=== PATIENT | male | born 1960 | race Two or more races ===

== ENCOUNTER 2021-06-03 23:09 | Emergency (ER) | payer MEDICAID, OTHER ==
[~2021-06-03] VITALS: Ht 177.8 cm; Wt 72.6 kg
[2021-06-04 01:45] LABS: Basophils # (auto) 0 10 ^3/uL (0-0.2); Basophils % (auto) 0.4 % (0.0-2.0); Eosinophils # (auto) 0 10 ^3/uL (0-0.8); Eosinophils % (auto) 0.5 % (0.0-7.0); Hematocrit 47.9 % (41.0-53.0); Hemoglobin 16.6 g/dL (13.5-17.5); Lymphocytes # (auto) 1.8 10 ^3/uL (0.4-5.4); Lymphocytes % (auto) 38.6 % (10.0-50.0); Mean Corpuscular Hemoglobin 30.1 pg (28.0-32.0); Mean Corpuscular Hgb Conc. 34.6 g/dL (32.0-36.0); Mean Corpuscular Volume 86.8 fL (80.0-100.0); Monocytes # (auto) 0.7 10 ^3/uL (0-1.3); Monocytes % (auto) 13.8 % (0.0-12.0); Neutrophils # (auto) 2.2 10 ^3/uL (1.6-8.6); Neutrophils % (auto) 46.7 % (37.0-80.0); Nucleated Red Blood Cells % 0.2 %; Red Blood Cells 5.52 10^6/uL (4.5-5.90); Red Cell Distribution Width 13.6 % (11.8-14.3); White Blood Cell 4.8 10^3/uL (4.4-10.8)
[2021-06-04 02:03] LABS: Alanine Aminotransferase 21 U/L (16-61); Albumin 3.5 g/dL (3.4-5.0); Anion Gap 6 (5-15); Aspartate Aminotransferase 17 U/L (15-37); BUN/Creatinine Ratio 7.6; Blood Urea Nitrogen 11 mg/dL (7-18); Calcium 8.2 mg/dL (8.5-10.1); Carbon Dioxide 26 mmol/L (21-32); Chloride 103 mmol/L (98-107); GFR African American 64 mL/min; GFR Non-African American 53 mL/min; Glucose 214 mg/dL (74-106); Sodium 135 mmol/L (136-145)
[2021-06-04 02:06] LABS: Alkaline Phosphatase 84 U/L (45-117); Bilirubin, Total 0.5 mg/dL (0.2-1.0); Total Protein 7.7 g/dL (6.4-8.2)
[2021-06-04 05:44] VITALS: BP 161/103
[2021-06-04] MEDS ORDERED: NYS5LQ MT (06:09)
== END 2021-06-04 06:26 | disposition home or self-care (01) ==
LOC: ER 23:13
DX: B37.0 Candidal stomatitis (principal); E11.65 Type 2 diabetes mellitus with hyperglycemia; I10 Essential (primary) hypertension
CPT/HCPCS: 36415; 80053; 82962; 85025

== ENCOUNTER 2025-01-30 22:45 | Inpatient (IN) | payer OTHER ==
[~2025-01-30] VITALS: Ht 177.8 cm; Wt 72.7 kg
[~2025-01-30 22:45] MED LIST: NYS5LQ MT
--- NOTE | 2025-01-30 23:41 | ED.PDOC ---
History of Present Illness HPI Comments 65 y/o M presents with c/c of nonradiating, lower abdominal pain, with associated nausea, vomiting, diarrhea, and poor appetite x4 days. Patient is a poor historian. Significant history for lung cancer, DM, HLD, HTN, [place], kidney disease, and tobacco cigarette and marijuana use. No reported history of previous abdominal surgeries, recent trauma or sick contact, known spoiled food consumption, or further pertinent history/events. He denies any bloody or bilious vomitus, bloody stools, constipation, urinary problems, or further acute symptoms. Chief Complaint: Abdominal Pain Time Seen by MD: 23:18 Reviewed Notes: Nurses Notes, Medications, Allergies Allergies: Coded Allergies: NO KNOWN ALLERGIES (Unverified , 06/04/21) Home Meds Active Scripts Nystatin (Mouth-Throat) (Mycostatin (Mouth-Throat)) 500,000 Units/5 Ml Ss, 5 ML MT QID for 5 Days, #100 ML Prov:KALE GOODSON MD 06/04/21 Information Source: Patient Mode of Arrival: Wheelchair Severity: Moderate Timing: Days Duration: Since onset Prehospital treatment: None Past Medical History PAST MEDICAL HISTORY: Cancer (lung cancer ), DM, High Lipids, HTN, [place] Past Medical History (Other): unspecified kidney disease Surgical History: Denies all surgeries Family History Family History: Reviewed,noncontributory to illness Social History Smoker: Cigarettes Alcohol: Denies ETOH Use Drugs: Marijuana Lives In: Home Constitutional: denies: chills, diaphoresis, fatigue, fever, malaise, sweats, weakness, others EENTM: denies: blurred vision, double vision, ear bleeding, ear discharge, ear drainage, ear pain, ear ringing, eye pain, eye redness, hearing loss, mouth pain, mouth swelling, nasal discharge, nose bleeding, nose congestion, nose pain, photophobia, tearing, throat pain, throat swelling, voice changes, others Respiratory: denies: cough, hemoptysis, orthopnea, SOB at rest, shortness of breath, SOB with excertion, stridor, wheezing, others Cardiovascular: denies: chest pain, dizzy spells, diaphoresis, Dyspnea on exertion, edema, irregular heart beat, left arm pain, lightheadedness, palpita tions, PND, syncope, others Gastrointestinal: reports: abdominal pain, diarrhea, nausea, poor appetite, vomiting; denies: abdomen distended, blood streaked bowels, constipated, dysphagia, difficulty swallowing, hematemesis, melena, poor fluid intake, rectal bleeding, rectal pain, others Genitourinary: denies: burning, dysuria, flank pain, frequency, hematuria, incontinence, penile discharge, penile sore, pain, testicle pain, testicle swelling, urgency, others Neurological: denies: dizziness, fainting, headache, left sided numbness, left sided weakness, numbness, paresthesia, pre-existing deficit, right sided numbness, right sided weakness, seizure, speech problems, tingling, tremors, weakness, others Musculoskeletal: denies: back pain, gout, joint pain, joint swelling, muscle pain, muscle stiffness, neck pain, others Integumetry: denies: bruises, change in color, change in hair/nails, dryness, laceration, lesions, lumps, rash, wounds, others Allergic/Immunocompromised: denies: Difficulty Healing, Frequent Infections, Hives, Itching, others Hematologic/Lymphatic: denies: anemia, blood clots, easy bleeding, easy bruising, swollen glands, others Endocrine: denies: excessive hunger, excessive sweating, excessive thirst, excessive urination, flushing, intolerance to cold, intolerance to heat, unexplained weight gain, unexplained weight loss, others Psychiatric: denies: anxiety, bipolar disorder, depression, hopeless, panic disorder, schizophrenia, sleepless, suicidal, others All Other Systems: Reviewed and Negative Physical Exam General Appearance: Moderate Distress HEENT: Normal ENT Inspection, Pharynx Normal, TMs Normal Neck: Full Range of Motion, Non-Tender, Normal, Normal Inspection Respiratory: Chest Non-Tender, Lungs Clear, No Accessory Muscle Use, No Respiratory Distress, Normal Breath Sounds Cardiovascular: No Edema, No JVD, No Murmur, No Gallop, Normal Peripheral Pulses, Regular Rate/Rhythm Breast Exam: Deferred Gastrointestinal: Diffuse, No Organomegaly, No Pulsatile Mass, Normal Bowel Sounds, Soft, Tenderness Genitalia: Deferred Pelvic: Deferred Rectal: Deferred Extremities: No calf tenderness, Normal capillary refill, Normal inspection, Normal range of motion, Non-tender, No pedal edema Musculoskeletal : Apperance: Normal Neurologic: Alert, edger saw operator II-XII nml as Tested, Motor Weakness, No Motor Deficits, Normal Affect, Normal Mood, No Sensory Deficits Cerebellar Function: Normal Reflexes: Normal Skin: Dry, Pallor, Warm Lymphatic: No Adenopathy Was a procedure done? Was a procedure done?: No Differential Dx Considerations may include: C. Diff, gastritis, gastroenteritis, GERD, constipation, UTI, kidney stones, viral, spoiled food, among others X-Ray, Labs, Meds, VS Vital Signs Date Time Temp Pulse Resp B/P (MAP) Pulse Ox O2 Delivery O2 Flow Rate FiO2 01/31/25 01:36 99 16 135/84 01/31/25 01:13 98.9 100 20 135/84 (101) 96 98.9 01/30/25 22:49 97.8 99 18 139/83 98 97.8 Lab Test 01/30/25 23:25 01/30/25 23:01 Range/Units White Blood Count 5.6 4.4-10.8 10^3/uL Red Blood Count 5.25 4.5-5.90 10^6/uL Hemoglobin 15.5 13.5-17.5 g/dL Hematocrit 45.3 41.0-53.0 % Mean Corpuscular Volume 86.4 80.0-100.0 fL Mean Corpuscular Hemoglobin 29.5 28.0-32.0 pg Mean Corpuscular Hemoglobin Concent 34.2 32.0-36.0 g/dL Red Cell Distribution Width 14.3 11.8-14.3 % Platelet Count 228 140-450 10^3/uL Mean Platelet Volume 9.0 6.9-10.8 fL Neutrophils (%) (Auto) 37.0-80.0 % Lymphocytes (%) (Auto) 10.0-50.0 % Monocytes (%) (Auto) 0.0-12.0 % Basophils (%) (Auto) 0.0-2.0 % Neutrophils # (Auto) 1.6-8.6 10 ^3/uL Lymphocytes # (Auto) 0.4-5.4 10 ^3/uL Monocytes # (Auto) 0-1.3 10 ^3/uL Differential Total Cells Counted 100.0 100 Neutrophils % (Manual) 44 37.0-80.0 Band Neutrophils % (Manual) 9 Lymphocytes % (Manual) 30 10.0-50.0 Monocytes % (Manual) 14 H 0-12 Eosinophils % (Manual) 1 0-7 Basophils % (Manual) 0 0.0-2.0 Metamyelocytes % (manual) 2 Myelocytes % (Manual) 0 Promyelocytes % (Manual) 0 Blast Cells % (Manual) 0 Reactive Lymphocytes 0 Platelet Estimate Adequate Sodium Level 132 L 136-145 mmol/L Potassium Level 3.8 3.5-5.1 mmol/L Chloride Level 99 98-107 mmol/L Carbon Dioxide Level 21 20-31 mmol/L Anion Gap 12 5-15 Blood Urea Nitrogen 64 H 9-23 mg/dL Creatinine 3.09 H 0.700-1.30 mg/dL Glomerular Filtration Rate Calc 22 >90 mL/min BUN/Creatinine Ratio 20.7 H 10.0-20.0 Serum Glucose 197 H 74-106 mg/dL Calcium Level 8.2 L 8.7-10.4 mg/dL Total Bilirubin 0.7 0.2-1.0 mg/dL Aspartate Amino Transferase (AST) 20 13-40 U/L Alanine Aminotransferase (ALT) 23 7-40 U/L Alkaline Phosphatase 67 46-116 U/L Ammonia < 10 L 11-32 umol/L Total Protein 6.2 5.7-8.2 g/dL Albumin 3.6 3.2-4.8 g/dL Lipase 20 12-53 U/L POC Glucose 214 H 70-106 mg/dl Current Medications Medications (Trade) Dose Ordered Sig/Ge Route Start Time Stop Time Status Last Admin Morphine Sulfate 2 mg ONCE ONCE IV 01/31/25 01:15 01/31/25 01:17 DC 01/31/25 01:36 Ondansetron HCl (Zofran) 4 mg ONCE ONCE IV 01/31/25 01:15 01/31/25 01:17 DC 01/31/25 01:36 PROCEDURE(s): ABPL - CT AB PEL WO CON-NO ORAL OR IV IMPRESSION: Moderate infectious/inflammatory pancolitis The patient was started on Flagyl 500 mg IV piggyback. The patient was given morphine 2 mg IV push for the pain The patient was given Zofran 4 mg IV push for the nausea The ammonia level is negative The patient's BUN is 64 and the creatinine is 3.09 The CBC is within normal limits. Images Reviewed?: Images reviewed and evaluated by me Time of 1ST Reevaluation: 23:48 Reevaluation 1ST: Unchanged Patient Education/Counseling: Diagnosis, Treatment, Prognosis Family Education/Counseling: No Family Present SEPSIS Sepsis Screen Date sepsis recognized/suspect: Jan 30, 2025 Time Sepsis recognized/suspect: 2248 Recent Procedure: No On Antibiotic Therapy: No Respiratory Rate >20: No Heart Rate >90: Yes Temp<36 C (96.8 F) or >38.3 C: No SBP <90 or MAP <65 mmHG: No New Acute Mental Status Change: No Is the patient on CPAP, BIPAP,: No Physician Orders Urinalysis (01/30/25 23:17) Ct Ab Pel Wo Con-No Oral Or Iv (01/30/25 23:17) Heplock Iv (01/30/25 23:17) Electric Hoist Operator (01/30/25 23:17) Blood Pressure (01/30/25 23:17) Pulse Oximetry (01/30/25 23:17) Clostridium Difficile Toxin (01/30/25 23:17) Vital Signs Date Time Temp Pulse Resp B/P (MAP) Pulse Ox O2 Delivery O2 Flow Rate FiO2 01/31/25 01:36 99 16 135/84 01/31/25 01:13 98.9 100 20 135/84 (101) 96 98.9 01/30/25 22:49 97.8 99 18 139/83 98 97.8 Laboratory Tests Test 01/30/25 23:25 White Blood Count 5.6 10^3/uL (4.4-10.8) Medications Medications Dose Ordered Sig/Ge Route Start Time Stop Time Status Last Admin Dose Admin Morphine Sulfate 2 mg ONCE ONCE IV 01/31/25 01:15 01/31/25 01:17 DC 01/31/25 01:36 Ondansetron HCl 4 mg ONCE ONCE IV 01/31/25 01:15 01/31/25 01:17 DC 01/31/25 01:36 Departure 1 Departure Time of Disposition: 02:36 Impression: Primary Impression: Intractable abdominal pain Additional Impressions: Acute colitis Dehydration Autonomic dysfunction Disposition: 09 ADMITTED INPATIENT Admit to: Med Surg Condition: Fair Critical Care Note Critical Care Time?: No Stability Stability form required: Yes Unstable for transfer: ED Physician Assesment (Clinical assesment) Heart Score Heart Score: Heart Score Response (Comments) Value History N/A 0 EKG N/A 0 Age N/A 0 Risk Factors N/A 0 Troponin N/A 0 Total 0 I personally scribed for CHRISTINA DIAZ MD ([email or web address]) on 01/30/25 at 23:41. Electronically submitted by Hayes Camejo ([email or web address]). I personally scribed for CHRISTINA DIAZ MD ([email or web address]) on 01/31/25 at 01:33. Electronically submitted by Hayes Camejo [email or web address]). CHRISTINA DIAZ MD Jan 30, 2025 23:41
[2025-01-30 23:59] LABS: Alanine Aminotransferase 23 U/L (7-40); Alkaline Phosphatase 67 U/L (46-116); Anion Gap 12 (5-15); BUN/Creatinine Ratio 20.7 (10.0-20.0); Carbon Dioxide 21 mmol/L (20-31); Chloride 99 mmol/L (98-107); Lipase 20 U/L (12-53); Potassium 3.8 mmol/L (3.5-5.1); Total Protein 6.2 g/dL (5.7-8.2)
[2025-01-31] VITALS (7 sets, daily range): BP systolic 127–135; BP diastolic 70–84; PULSE 84–99; RESP 16–20; TEMP 99.2; O2SAT 92–95
[2025-01-31] LABS: Albumin 3.6 g/dL (3.2-4.8); Bilirubin, Total 0.7 mg/dL (0.2-1.0)
[2025-01-31 00:13] LABS: Blood Urea Nitrogen 64 mg/dL (9-23); Calcium 8.2 mg/dL (8.7-10.4); Glucose 197 mg/dL (74-106); Sodium 132 mmol/L (136-145)
[2025-01-31 00:22] LABS: Hematocrit 45.3 % (41.0-53.0); Hemoglobin 15.5 g/dL (13.5-17.5); Mean Corpuscular Hemoglobin 29.5 pg (28.0-32.0); Mean Corpuscular Volume 86.4 fL (80.0-100.0)
--- NOTE | 2025-01-31 00:37 | DVH ---
Exam: CT CT AB PEL WO CON-NO ORAL OR IV History: Pain Comparison Study: None Technique: Multidetector spiral CT of the abdomen was performed from lung bases to pubic symphysis. Imaging was performed without IV contrast. Axial, coronal and sagittal multiplanar reformats were obtained from the axial data set by the technologist. Radiation Dose : 1. Abdomen/Pelvis: CTDIvol 5.07 mGy, DLP 277.46 mGy*cm. Findings: Evaluation of solid organs is limited due to lack of intravenous contrast use. Lung Bases: No acute or significant lung base finding. Normal heart size. No pleural or pericardial effusion. Liver: The liver is normal in size. No focal lesions. Gallbladder and Biliary Tree: Unremarkable Spleen: Tiny calcified granulomas scattered throughout the spleen. Spleen is otherwise unremarkable. Pancreas: Unremarkable Adrenal Glands: 2 cm low-density left adrenal nodule, likely a benign adenoma. Right adrenal gland is unremarkable. Kidneys: Unremarkable Bladder: Grossly unremarkable for degree of distention. Bowel: Moderate diffuse pancolonic wall thickening and mural edema. No bowel obstruction. The appendix is normal. Peritoneal cavity: No pneumoperitoneum, ascites, or abscess. Lymphadenopathy: No mesenteric, retroperitoneal or periportal lymphadenopathy. Abdominal Wall and Mesentery: Unremarkable. Vasculature: Scattered calcific plaque throughout the abdominal aorta which is otherwise normal in size. Pelvic Organs: Unremarkable Musculoskeletal: No aggressive focal bony lesions, acute fractures or dislocation. IMPRESSION: Moderate infectious/inflammatory pancolitis Radiation optimization: All CT scans at this facility use at least one of these dose optimization techniques: automated exposure control mA and/or kV adjustment per patient size (includes targeted exams where dose is matched to clinical indication) or iterative reconstruction.
[2025-01-31 01:27] LABS: Total Cells Counted 100.0 (100)
[2025-01-31] MEDS: MORPHINE SULFATE INJ 2 MG/ml SYRG IV ONE (01:36)
[2025-01-31] MEDS: ONDANSETRON HCL 4 MG/2 ML VIAL IV ONE (01:36)
[2025-01-31] MEDS ORDERED: ONDANSETRON HCL 4 MG/2 ML VIAL IV PRN (04:00)
[2025-01-31] MEDS ORDERED: ACETAMINOPHEN 325 MG TAB PO PRN (04:00)
[2025-01-31] MEDS ORDERED: ALBUTEROL SULF 2.5 MG/0.5ML(0.5%) NEB SOLN NEB PRN (04:00)
[2025-01-31] MEDS: SODIUM CHLORIDE 0.9% 1,000 ML IV ONE (04:32)
[2025-01-31] MEDS: PANTOPRAZOLE 40 MG TAB PO SCH (06:51)
[2025-01-31] MEDS ORDERED: DEXTROSE (50%) 50ML SYRG IV PRN (07:00)
--- NOTE | 2025-01-31 07:00 | DVHHP2 ---
Admitting Diagnosis: Abdominal pain History of Present Illness 65 year old male with history of lung cancer, DM, HLD, HTN, [place], kidney disease, and tobacco cigarette and marijuana use. is complaining of lower abdominal pain for four days. Patient also reports nausea, vomiting, diarrhea with poor appetite. While in the emergency department the patient was evaluated by the provider. Patient will be admitted for further evaluation and treatment. I discussed admission with the patient/family and is in agreement to treatment plan. Allergies: Coded Allergies: NO KNOWN ALLERGIES (Unverified , 06/04/21) Home Meds Active Scripts Nystatin (Mouth-Throat) (Mycostatin (Mouth-Throat)) 500,000 Units/5 Ml Ss, 5 ML MT QID for 5 Days, #100 ML Prov:KALE GOODSON MD 06/04/21 Reported Medications Atorvastatin Calcium (ATORVASTATIN CALCIUM) 20 Mg Tab, 1 TAB PO DAILY 01/31/25 Lisinopril (Lisinopril) 5 Mg Tab, 1 TAB PO DAILY 01/31/25 Current Medications Current Medications Medications (Trade) Dose Ordered Sig/Ge Route PRN Reason Start Time Stop Time Status Last Admin Ceftriaxone Sodium 50 ml @ 100 mls/hr DAILY@09 IV 01/31/25 09:00 01/31/25 10:00 Metronidazole 100 ml @ 100 mls/hr Q8H IV 01/31/25 11:30 01/31/25 11:38 Pantoprazole Sodium (Protonix Tablet) 40 mg DAILY@0600 PO 01/31/25 06:00 01/31/25 15:58 DC 01/31/25 06:51 Albuterol (Ventolin Medneb) 2.5 mg Q6HPRN PRN NEB SHORTNESS OF BREATH 01/31/25 04:00 Atorvastatin Calcium (Lipitor) 20 mg HS PO 01/31/25 22:00 Acetaminophen/ Hydrocodone Bitart (Urich 5/325MG Tab) 1 tab Q4HP PRN PO MODERATE PAIN (4-6 PAIN SCALE) 01/31/25 04:00 Ondansetron HCl (Zofran) 4 mg Q4HP PRN IV NAUSEA / VOMITING 01/31/25 04:00 Acetaminophen (Tylenol Tablet) 650 mg Q6HP PRN PO PAIN SCALE 1-3 OR TEMP>100.4 01/31/25 04:00 Morphine Sulfate 2 mg Q6HPRN PRN IV SEVERE PAIN (7-10 PAIN SCALE) 01/31/25 04:00 01/31/25 12:25 Diagnostic Test (Pha) (Accu-Chek Comfort Curve T) 1 strip ACHS 01/31/25 07:00 01/31/25 16:45 Insulin Human Regular (InsuLIN R) HS SC 01/31/25 22:00 Insulin Human Regular (InsuLIN R) AC SC 01/31/25 07:00 01/31/25 16:50 Dextrose 50 ml UD PRN IV Blood Sugar LESS THAN 60 01/31/25 07:00 Atorvastatin Calcium (Lipitor) 20 mg DAILY PO 01/31/25 10:00 UNV Heparin Sodium (Porcine) 5,000 units Q12HR SC 01/31/25 10:00 01/31/25 10:23 Tamsulosin HCl (Flomax) 0.4 mg QPM PO 01/31/25 18:00 Sodium Chloride 1,000 ml @ 100 mls/hr Q10H IV 01/31/25 16:00 02/01/25 10:00 01/31/25 17:36 Pantoprazole Sodium (Protonix) 40 mg DAILY IV 02/01/25 10:00 Review of Systems Constitutional: denies chills, denies fever, denies malaise Eyes: denies eye pain, denies vision change ENT: denies ear pain, denies headache, denies nasal congestion, denies painful swallowing, denies voice change Cardiovascular: denies chest pain, denies edema, denies orthopnea, denies palpi tations, denies paroxysmal nocturnal dyspnea Respiratory: denies cough, denies shortness of breath Gastrointestinal: denies constipation, denies diarrhea, denies nausea, denies vomiting Genitourinary: denies dysuria, denies frequent urination, denies urethral discharge Musculoskeletal: denies back pain, denies joint pain, denies muscle pain Skin: denies bruising, denies itching, denies rash Neurological: denies focal weakness, denies headache, denies sensory changes Psychiatric: denies anxiety, denies depression Endocrine: denies polydipsia, denies polyuria Hematologic/Lymphatic: denies easy bleeding, denies easy bruising, denies enlarged lymph nodes Allergic/Immunologic: denies allergy, denies hives Vital Signs Vital Signs Date Time Temp Pulse Resp B/P (MAP) Pulse Ox O2 Delivery O2 Flow Rate FiO2 01/31/25 17:07 100 17 138/72 (94) 95 01/31/25 11:30 98.1 98.1 01/31/25 11:30 Room Air* 0 21 Physical Exam General Appearance: alert, no distress HEENT: EOMI, PERRLA, normal external inspect of ears, no icterus, no nasal drainage Neck: no carotid bruit, no jugular venous distention (JVD), no lymphadenopathy Chest: normal thorax Respiratory: clear to auscultation, normal air movement Cardiovascular: regular rate and rhythm, no diastolic murmur, no jugular venous distention (JVD), no rub, no systolic murmur Abdominal: soft, no hepatomegaly, no mass, no splenomegaly, no tenderness Musculoskeletal: no joint tenderness, no swelling Extremities: normal pulses, no calf tenderness, no clubbing, no cyanosis, no edema Skin: no bruising, no jaundice, no rash Neurological: alert, No focal deficit SEPSIS Sepsis Screen Date sepsis recognized/suspect: Jan 31, 2025 Time Sepsis recognized/suspect: 443 Recent Procedure: No On Antibiotic Therapy: No Respiratory Rate >20: No Heart Rate >90: No Temp<36 C (96.8 F) or >38.3 C: No SBP <90 or MAP <65 mmHG: No New Acute Mental Status Change: No Is the patient on CPAP, BIPAP,: No Physician Orders Ct Ab Pel Wo Con-No Oral Or Iv (01/30/25 23:17) Heplock Iv (01/30/25 23:17) Hydroelectric Machinery Mechanic Helper (01/30/25 23:17) Blood Pressure (01/30/25 23:17) Pulse Oximetry (01/30/25 23:17) Clostridium Difficile Toxin (01/30/25 23:17) Stool Bacterial Culture (01/31/25 03:51) Ceftriaxone 1gm/50ml (Rocephin) (01/31/25 09:00) Metronidazole 500mg/100ml (Flagyl 500mg/ (01/31/25 11:30) Albuterol Medneb (Ventolin Medneb) (01/31/25 04:00) Atorvastatin (Lipitor) (01/31/25 22:00) Basic Metabolic Panel (02/01/25 04:00) Admit (01/31/25 03:51) Hydrocodone-Acet 5/325mg Tab (Urich 5/32 (01/31/25 04:00) Ondansetron Hcl (Zofran) (01/31/25 04:00) Complete Blood Count (02/01/25 04:00) Condition: Stable (01/31/25 03:51) Acetaminophen Tablet (Tylenol Tablet) (01/31/25 04:00) Clear Liq Diet (01/31/25 Breakfast) Bedrest With Bathroom Privileg (01/31/25 03:51) Morphine Sulfate Injection (01/31/25 04:00) Glucose Blood (Accu-Chek Comfort Curve T (01/31/25 07:00) Insulin R (Human) (Insulin R) (01/31/25 22:00) Insulin R (Human) (Insulin R) (01/31/25 07:00) Dextrose 50% Syringe (01/31/25 07:00) * Gi D[facility] Asbestos Wire Finisher (01/31/25 07:06) Kidney (01/31/25 07:07) *Dr. Elise Yoon -Brenton Barbosa (01/31/25 07:07) Sequential Compression Device (01/31/25 07:07) Heparin Sodium (Porcine) (01/31/25 10:00) Insert Lr Catheter QSHIFT (01/31/25 08:41) Tamsulosin Hydrochloride (Flomax) (01/31/25 18:00) * Urology Consult (01/31/25 08:41) Psa Total+% Free (01/31/25 10:00) Ok To Send Pt Home With Lr (01/31/25 10:00) Follow Up In 2 Wk Upon D/C (01/31/25 10:00) Stool Occult Blood (01/31/25 11:58) Sodium Chloride 0.9% (01/31/25 16:00) Urine Protein/Creatinine Ratio (01/31/25 ) Pantoprazole (Protonix) (02/01/25 10:00) Lactic Acid W/ Reflex Order (01/31/25 18:00) Vital Signs Date Time Temp Pulse Resp B/P (MAP) Pulse Ox O2 Delivery O2 Flow Rate FiO2 01/31/25 17:07 100 17 138/72 (94) 95 01/31/25 16:00 106 22 147/81 (103) 92 01/31/25 16:00 105 01/31/25 14:00 102 19 159/76 (103) 92 01/31/25 12:55 90 15 156/83 01/31/25 12:25 85 19 157/83 01/31/25 12:00 91 19 159/84 (109) 96 01/31/25 12:00 91 01/31/25 11:30 98.1 96 18 153/81 (105) 93 98.1 01/31/25 11:30 96 16 93 Room Air* 0 21 01/31/25 10:00 100 24 146/77 (100) 97 01/31/25 08:00 97.6 101 19 144/83 (103) 93 97.6 01/31/25 08:00 83 01/31/25 08:00 Room Air* 0 21 01/31/25 07:02 85 18 145/79 (101) 95 01/31/25 06:44 93 Room Air 01/31/25 06:44 93 Room Air* 0 21 01/31/25 05:00 91 19 156/78 (104) 95 01/31/25 04:37 84 17 95 Room Air* 0 21 01/31/25 04:32 99 20 135/84 95 21 01/31/25 03:00 85 16 138/69 (92) 97 01/31/25 01:36 99 16 135/84 01/31/25 01:13 98.9 100 20 135/84 (101) 96 98.9 01/30/25 22:49 97.8 99 18 139/83 98 97.8 Laboratory Tests Test 01/30/25 23:25 01/31/25 10:04 01/31/25 11:51 01/31/25 17:51 White Blood Count 5.6 10^3/uL (4.4-10.8) 3.8 10^3/uL (4.4-10.8) #L Lactic Acid Level 3.9 mmol/L (0.4-2.0) *H 2.3 mmol/L (0.4-2.0) *H Pending Medications Medications Dose Ordered Sig/Ge Route Start Time Stop Time Status Last Admin Dose Admin Ceftriaxone Sodium 50 ml @ 100 mls/hr DAILY@09 IV 01/31/25 09:00 01/31/25 10:00 Diagnostic Test (Pha) 1 strip ACHS 01/31/25 07:00 01/31/25 16:45 Heparin Sodium (Porcine) 5,000 units Q12HR SC 01/31/25 10:00 01/31/25 10:23 Insulin Human Regular AC SC 01/31/25 07:00 01/31/25 16:50 Metronidazole 100 ml @ 100 mls/hr Q8H IV 01/31/25 11:30 01/31/25 11:38 Sodium Chloride 1,000 ml @ 100 mls/hr Q10H IV 01/31/25 16:00 02/01/25 10:00 01/31/25 17:36 Results Labs Test 01/31/25 17:51 01/31/25 16:32 01/31/25 11:20 01/31/25 10:04 Range/Units Influenza Type A Antigen Negative Negative Influenza Type B Antigen Negative Negative SARS-CoV-2 Antigen (Rapid) Negative NEGATIVE Stool for White Cells Many White Blood Count 3.8 #L 4.4-10.8 10^3/uL Red Blood Count 4.82 4.5-5.90 10^6/uL Hemoglobin 14.2 13.5-17.5 g/dL Hematocrit 41.8 41.0-53.0 % Mean Corpuscular Volume 86.7 80.0-100.0 fL Mean Corpuscular Hemoglobin 29.4 28.0-32.0 pg Mean Corpuscular Hemoglobin Concent 33.9 32.0-36.0 g/dL Red Cell Distribution Width 14.2 11.8-14.3 % Platelet Count 196 140-450 10^3/uL Mean Platelet Volume 8.6 6.9-10.8 fL Neutrophils (%) (Auto) 37.0-80.0 % Lymphocytes (%) (Auto) 10.0-50.0 % Monocytes (%) (Auto) 0.0-12.0 % Basophils (%) (Auto) 0.0-2.0 % Neutrophils # (Auto) 1.6-8.6 10 ^3/uL Lymphocytes # (Auto) 0.4-5.4 10 ^3/uL Monocytes # (Auto) 0-1.3 10 ^3/uL Differential Total Cells Counted 100.0 100 Neutrophils % (Manual) 52 37.0-80.0 Band Neutrophils % (Manual) 10 Lymphocytes % (Manual) 13 10.0-50.0 Monocytes % (Manual) 25 H 0-12 Eosinophils % (Manual) 0 0-7 Basophils % (Manual) 0 0.0-2.0 Metamyelocytes % (manual) 0 Myelocytes % (Manual) 0 Promyelocytes % (Manual) 0 Blast Cells % (Manual) 0 Reactive Lymphocytes 0 Platelet Estimate Adequate Urine Color Yellow Yellow Urine Clarity Turbid H Clear Urine pH 5.0 5.0-9.0 Urine Specific Cullen 1.021 1.001-1.035 Urine Protein 1+ H Negative Urine Ketones Negative Negative Urine Blood 1+ H Negative /uL Urine Nitrite Negative Negative Urine Bilirubin Negative Negative Urine Urobilinogen Normal Negative mg/dL Urine Leukocyte Esterase Negative Negative /uL Urine RBC 3 0 - 3 /hpf Urine Microscopic WBC 3 0-3 /HPF Urine Squamous Epithelial Cells None seen <5 /hpf Urine Bacteria None seen None Seen /hpf Urine Glucose Trace Normal mg/dL Sodium Level 132 L 136-145 mmol/L Potassium Level 3.6 3.5-5.1 mmol/L Chloride Level 101 98-107 mmol/L Carbon Dioxide Level 22 20-31 mmol/L Anion Gap 9 5-15 Blood Urea Nitrogen 58 H 9-23 mg/dL Creatinine 2.75 H 0.700-1.30 mg/dL Glomerular Filtration Rate Calc 25 >90 mL/min BUN/Creatinine Ratio 21.1 H 10.0-20.0 Serum Glucose 213 H 74-106 mg/dL Calcium Level 8.3 L 8.7-10.4 mg/dL Total Bilirubin 0.5 0.2-1.0 mg/dL Aspartate Amino Transferase (AST) 14 13-40 U/L Alanine Aminotransferase (ALT) 20 7-40 U/L Alkaline Phosphatase 57 46-116 U/L C-Reactive Protein High Sensitivity > 20.00 H <1.0 mg/dL Total Protein 6.2 5.7-8.2 g/dL Albumin 3.4 3.2-4.8 g/dL Test 01/31/25 05:56 01/30/25 23:25 Range/Units POC Glucose 229 H 70-106 mg/dl Ammonia < 10 L 11-32 umol/L Lipase 20 12-53 U/L Primary Diagnosis -Abdominal pain r/t patel colitis IV Abx, GI consult, monitoring -Urinary retention Lr catheter placement, IV fluids, monitoring -BPH monitoring -EWA from vasomotor nephropathy Nephrology consult, monitor labs, medications, monitoring -Diarrhea Sent stool for culture, Rule out Cdiff, medications, monitoring Plan discussed with: Patient, Other FRANCISCO JAVIER [employer] MANAGER Jan 31, 2025 07:00
[2025-01-31] MEDS ORDERED: LISI-275 PO (07:07)
[2025-01-31] MEDS ORDERED: ATOR20TA50 PO (07:07)
[2025-01-31] MEDS: ACCU-CHEK COMFORT CURVE STRIP VI SCH (07:26)
[2025-01-31] MEDS: InsuLIN REG 1unit/0.01ml Soln (100units/ml) SC SCH ×2 (07:26→22:00)
--- NOTE | 2025-01-31 08:56 | DVH ---
CLINICAL HISTORY: angel TECHNIQUE: Complete ultrasound exam of the kidneys and bladder was performed. COMPARISON: None FINDINGS: The right kidney has normal echogenicity and measures 10.7 cm. There is no focal parenchymal abnormality or evidence for stone. There is no hydronephrosis. The left kidney has normal echogenicity and measures 9.7 cm. There is no focal parenchymal abnormality or evidence for stone. There is no hydronephrosis. The bladder is distended with a volume of 611 mL. There is trace debris within the bladder. IMPRESSION: No significant sonographic abnormality of the kidneys. Distended urinary bladder with volume of 611 mL. Patient did not want to void. Trace bladder debris. Please correlate with urinalysis.
[2025-01-31] MEDS ORDERED: ATORVASTATIN 20 MG TAB PO SCH (10:00)
--- NOTE | 2025-01-31 10:00 | DVHINCON2 ---
Date of service: Jan 31, 2025 Referring Physician Hospitalist Reason for Consultation Urinary retention History of Present Illness 65 y/o M admitted for "colitis" c/o urinary retention. Lr catheter placed with 700 ml urine return noted. He presents with c/c of nonradiating, lower abdominal pain, with associated nausea, vomiting, diarrhea, and poor appetite x4 days. Patient is a poor historian. Significant history for lung cancer, DM, HLD, HTN, AR, kidney disease, and tobacco cigarette and marijuana use. No reported history of previous abdominal surgeries, recent trauma or sick contact, known spoiled food consumption, or further pertinent history/events. He denies any bloody or bilious vomitus, bloody stools, constipation, urinary problems, or further acute symptoms. Chief Complaint: Abdominal Pain Reviewed Notes: Nurses Notes, Medications, Allergies Allergies: Coded Allergies: NO KNOWN ALLERGIES (Unverified , 06/04/21) Home Meds Active Scripts Nystatin (Mouth-Throat) (Mycostatin (Mouth-Throat)) 500,000 Units/5 Ml Ss, 5 ML MT QID for 5 Days, #100 ML Prov:KALE GOODSON MD 06/04/21 Information Source: Patient Mode of Arrival: Wheelchair Severity: Moderate Timing: Days Duration: Since onset Prehospital treatment: None Past Medical History Cancer (lung cancer ), DM, High Lipids, HTN, AR Past Medical History (Other): unspecified kidney disease Social History Smoker: Cigarettes Alcohol: Denies ETOH Use Drugs: Marijuana Lives In: Home Allergies: Coded Allergies: NO KNOWN ALLERGIES (Unverified , 06/04/21) Home Meds Active Scripts Nystatin (Mouth-Throat) (Mycostatin (Mouth-Throat)) 500,000 Units/5 Ml Ss, 5 ML MT QID for 5 Days, #100 ML Prov:KALE GOODSON MD 06/04/21 Reported Medications Atorvastatin Calcium (ATORVASTATIN CALCIUM) 20 Mg Tab, 1 TAB PO DAILY 01/31/25 Lisinopril (Lisinopril) 5 Mg Tab, 1 TAB PO DAILY 01/31/25 Current Medications Current Medications Medications (Trade) Dose Ordered Sig/Ge Route PRN Reason Start Time Stop Time Status Last Admin Ceftriaxone Sodium 50 ml @ 100 mls/hr DAILY@09 IV 01/31/25 09:00 Metronidazole 100 ml @ 100 mls/hr Q8H IV 01/31/25 11:30 Pantoprazole Sodium (Protonix Tablet) 40 mg DAILY@0600 PO 01/31/25 06:00 01/31/25 06:51 Albuterol (Ventolin Medneb) 2.5 mg Q6HPRN PRN NEB SHORTNESS OF BREATH 01/31/25 04:00 Atorvastatin Calcium (Lipitor) 20 mg HS PO 01/31/25 22:00 Acetaminophen/ Hydrocodone Bitart ([place] 5/325MG Tab) 1 tab Q4HP PRN PO MODERATE PAIN (4-6 PAIN SCALE) 01/31/25 04:00 Ondansetron HCl (Zofran) 4 mg Q4HP PRN IV NAUSEA / VOMITING 01/31/25 04:00 Acetaminophen (Tylenol Tablet) 650 mg Q6HP PRN PO PAIN SCALE 1-3 OR TEMP>100.4 01/31/25 04:00 Morphine Sulfate 2 mg Q6HPRN PRN IV SEVERE PAIN (7-10 PAIN SCALE) 01/31/25 04:00 Diagnostic Test (Pha) (Accu-Chek Comfort Curve T) 1 strip ACHS 01/31/25 07:00 01/31/25 07:26 Insulin Human Regular (InsuLIN R) HS SC 01/31/25 22:00 Insulin Human Regular (InsuLIN R) AC SC 01/31/25 07:00 01/31/25 07:26 Dextrose 50 ml UD PRN IV Blood Sugar LESS THAN 60 01/31/25 07:00 Atorvastatin Calcium (Lipitor) 20 mg DAILY PO 01/31/25 10:00 UNV Heparin Sodium (Porcine) 5,000 units Q12HR SC 01/31/25 10:00 Tamsulosin HCl (Flomax) 0.4 mg QPM PO 01/31/25 18:00 Review of Systems Constitutional: denies: chills, diaphoresis, fatigue, fever, malaise, sweats, weakness, others EENTM: denies: blurred vision, double vision, ear bleeding, ear discharge, ear drainage, ear pain, ear ringing, eye pain, eye redness, hearing loss, mouth pain, mouth swelling, nasal discharge, nose bleeding, nose congestion, nose pain, photophobia, tearing, throat pain, throat swelling, voice changes, others Respiratory: denies: cough, hemoptysis, orthopnea, SOB at rest, shortness of breath, SOB with excertion, stridor, wheezing, others Cardiovascular: denies: chest pain, dizzy spells, diaphoresis, Dyspnea on exertion, edema, irregular heart beat, left arm pain, lightheadedness, palpitations, PND, syncope, others Gastrointestinal: reports: abdominal pain, diarrhea, nausea, poor appetite, vomiting; denies: abdomen distended, blood streaked bowels, constipated, dysphagia, difficulty swallowing, hematemesis, melena, poor fluid intake, rectal bleeding, rectal pain, others Genitourinary: denies: burning, dysuria, flank pain, frequency, hematuria, incontinence, penile discharge, penile sore, pain, testicle pain, testicle swel ling, urgency, others Neurological: denies: dizziness, fainting, headache, left sided numbness, left sided weakness, numbness, paresthesia, pre-existing deficit, right sided numbness, right sided weakness, seizure, speech problems, tingling, tremors, weakness, others Musculoskeletal: denies: back pain, gout, joint pain, joint swelling, muscle pain, muscle stiffness, neck pain, others Integumetry: denies: bruises, change in color, change in hair/nails, dryness, laceration, lesions, lumps, rash, wounds, others Allergic/Immunocompromised: denies: Difficulty Healing, Frequent Infections, Hives, Itching, others Hematologic/Lymphatic: denies: anemia, blood clots, easy bleeding, easy bruising, swollen glands, others Endocrine: denies: excessive hunger, excessive sweating, excessive thirst, excessive urination, flushing, intolerance to cold, intolerance to heat, unexplained weight gain, unexplained weight loss, others Psychiatric: denies: anxiety, bipolar disorder, depression, hopeless, panic disorder, schizophrenia, sleepless, suicidal, others All Other Systems: Reviewed and Negative Vital Signs Vital Signs Date Time Temp Pulse Resp B/P (MAP) Pulse Ox O2 Delivery O2 Flow Rate FiO2 01/31/25 08:00 97.6 101 19 144/83 (103) 93 97.6 01/31/25 08:00 Room Air* 0 21 Physical Exam General Appearance: Moderate Distress HEENT: Normal ENT Inspection, Pharynx Normal, TMs Normal Neck: Full Range of Motion, Non-Tender, Normal, Normal Inspection Respiratory: Chest Non-Tender, Lungs Clear, No Accessory Muscle Use, No Respiratory Distress, Normal Breath Sounds Cardiovascular: No Edema, No JVD, No Murmur, No Gallop, Normal Peripheral Pulses, Regular Rate/Rhythm Breast Exam: Deferred Gastrointestinal: Diffuse, No Organomegaly, No Pulsatile Mass, Normal Bowel Sounds, Soft, Tenderness Genitalia: Lr in place Pelvic: Deferred Rectal: Deferred Extremities: No calf tenderness, Normal capillary refill, Normal inspection, Normal range of motion, Non-tender, No pedal edema Musculoskeletal : Apperance: Normal Neurologic: Alert, tire and lube technician II-XII nml as Tested, Motor Weakness, No Motor Deficits, Normal Affect, Normal Mood, No Sensory Deficits Cerebellar Function: Normal Reflexes: Normal Skin: Dry, Pallor, Warm Lymphatic: No Adenopathy PATIENT: SMOOTH ROTH EBSHAINAEMACCT: [id number] UNIT: [id number] : 1960 LOC: OVERFLOW ROOM / BED: [address] [place] [address] AGE / SEX: 65 / M ADM STATUS: ADM IN SERVICE 6 ORDERING PHYSICIAN: FRANCISCO JAVIER MACKEY NP PROCEDURE(s): KIDUS - KIDNEY REASON: angel ORDER NUMBER(s): [id number], ACCESSION NUMBER(s): [id number] CLINICAL HISTORY: angel TECHNIQUE: Complete ultrasound exam of the kidneys and bladder was performed. COMPARISON: None FINDINGS: The right kidney has normal echogenicity and measures 10.7 cm. There is no focal parenchymal abnormality or evidence for stone. There is no hydronephrosis. The left kidney has normal echogenicity and measures 9.7 cm. There is no focal parenchymal abnormality or evidence for stone. There is no hydronephrosis. The bladder is distended with a volume of 611 mL. There is trace debris within the bladder. IMPRESSION: No significant sonographic abnormality of the kidneys. Distended urinary bladder with volume of 611 mL. Patient did not want to void. Trace bladder debris. Please correlate with urinalysis. ATED BY: SARAH HANEY MD DICTATED DATE/TIME: 01/31/25 0839 SIGNED BY: SARAH HANEY MD SIGNED DATE/TIME: 01/31/25 0853 CC: Labs/Diagnostic Data Labs Test 01/31/25 05:56 01/30/25 23:25 Range/Units POC Glucose 229 H 70-106 mg/dl White Blood Count 5.6 4.4-10.8 10^3/uL Red Blood Count 5.25 4.5-5.90 10^6/uL Hemoglobin 15.5 13.5-17.5 g/dL Hematocrit 45.3 41.0-53.0 % Mean Corpuscular Volume 86.4 80.0-100.0 fL Mean Corpuscular Hemoglobin 29.5 28.0-32.0 pg Mean Corpuscular Hemoglobin Concent 34.2 32.0-36.0 g/dL Red Cell Distribution Width 14.3 11.8-14.3 % Platelet Count 228 140-450 10^3/uL Mean Platelet Volume 9.0 6.9-10.8 fL Neutrophils (%) (Auto) 37.0-80.0 % Lymphocytes (%) (Auto) 10.0-50.0 % Monocytes (%) (Auto) 0.0-12.0 % Basophils (%) (Auto) 0.0-2.0 % Neutrophils # (Auto) 1.6-8.6 10 ^3/uL Lymphocytes # (Auto) 0.4-5.4 10 ^3/uL Monocytes # (Auto) 0-1.3 10 ^3/uL Differential Total Cells Counted 100.0 100 Neutrophils % (Manual) 44 37.0-80.0 Band Neutrophils % (Manual) 9 Lymphocytes % (Manual) 30 10.0-50.0 Monocytes % (Manual) 14 H 0-12 Eosinophils % (Manual) 1 0-7 Basophils % (Manual) 0 0.0-2.0 Metamyelocytes % (manual) 2 Myelocytes % (Manual) 0 Promyelocytes % (Manual) 0 Blast Cells % (Manual) 0 Reactive Lymphocytes 0 Platelet Estimate Adequate Sodium Level 132 L 136-145 mmol/L Potassium Level 3.8 3.5-5.1 mmol/L Chloride Level 99 98-107 mmol/L Carbon Dioxide Level 21 20-31 mmol/L Anion Gap 12 5-15 Blood Urea Nitrogen 64 H 9-23 mg/dL Creatinine 3.09 H 0.700-1.30 mg/dL Glomerular Filtration Rate Calc 22 >90 mL/min BUN/Creatinine Ratio 20.7 H 10.0-20.0 Serum Glucose 197 H 74-106 mg/dL Calcium Level 8.2 L 8.7-10.4 mg/dL Total Bilirubin 0.7 0.2-1.0 mg/dL Aspartate Amino Transferase (AST) 20 13-40 U/L Alanine Aminotransferase (ALT) 23 7-40 U/L Alkaline Phosphatase 67 46-116 U/L Ammonia < 10 L 11-32 umol/L Total Protein 6.2 5.7-8.2 g/dL Albumin 3.6 3.2-4.8 g/dL Lipase 20 12-53 U/L PATIENT: SMOOTH ROTHT: [id number] UNIT: [id number] : 1960 LOC: ER ROOM / BED: / AGE / SEX: 65 / M ADM STATUS: REG ER SERVICE [id number] ORDERING PHYSICIAN: CHRISTINA DIAZ MD PROCEDURE(s): ABPL - CT AB PEL WO CON-NO ORAL OR IV REASON: p[ai ORDER NUMBER(s): [id number], ACCESSION NUMBER(s): [id number] Exam: CT CT AB PEL WO CON-NO ORAL OR IV History: Pain Comparison Study: None Technique: Multidetector spiral CT of the abdomen was performed from lung bases to pubic symphysis. Imaging was performed without IV contrast. Axial, coronal and sagittal multiplanar reformats were obtained from the axial data set by the technologist. Radiation Dose : 1. Abdomen/Pelvis: CTDIvol 5.07 mGy, DLP 277.46 mGy*cm. Findings: Evaluation of solid organs is limited due to lack of intravenous contrast use. Lung Bases: No acute or significant lung base finding. Normal heart size. No pleural or pericardial effusion. Liver: The liver is normal in size. No focal lesions. Gallbladder and Biliary Tree: Unremarkable Spleen: Tiny calcified granulomas scattered throughout the spleen. Spleen is otherwise unremarkable. Pancreas: Unremarkable Adrenal Glands: 2 cm low-density left adrenal nodule, likely a benign adenoma. Right adrenal gland is unremarkable. Kidneys: Unremarkable Bladder: Grossly unremarkable for degree of distention. Bowel: Moderate diffuse pancolonic wall thickening and mural edema. No bowel obstruction. The appendix is normal. Peritoneal cavity: No pneumoperitoneum, ascites, or abscess. Lymphadenopathy: No mesenteric, retroperitoneal or periportal lymphadenopathy. Abdominal Wall and Mesentery: Unremarkable. Vasculature: Scattered calcific plaque throughout the abdominal aorta which is otherwise normal in size. Pelvic Organs: Unremarkable Musculoskeletal: No aggressive focal bony lesions, acute fractures or dislocati on. IMPRESSION: Moderate infectious/inflammatory pancolitis Radiation optimization: All CT scans at this facility use at least one of these dose optimization techniques: automated exposure control mA and/or kV adjustment per patient size (includes targeted exams where dose is matched to clinical indication) or iterative reconstruction. ATED BY: MARQUES CHAIREZ MD DICTATED DATE/TIME: 01/31/2534 SIGNED BY: MARQUES CHAIREZ MD SIGNED DATE/TIME: 01/31/2534 CC: Assessment Urinary retention BPH Colitis Plan/Recommendation Lr to gravity and leg bag for discharge Outpatient cystoscopy tBA PSA Plan discussed with: IKE Zee MD Jan 31, 2025 10:00
[2025-01-31 10:21] LABS: Hematocrit 41.8 % (41.0-53.0); Hemoglobin 14.2 g/dL (13.5-17.5); Mean Corpuscular Hemoglobin 29.4 pg (28.0-32.0); Mean Corpuscular Volume 86.7 fL (80.0-100.0)
[2025-01-31] MEDS: HEPARIN SODIUM (PORCINE) 5000 UNITS/ML 1ML VIAL SC SCH (10:23)
[2025-01-31 10:35] LABS: Alanine Aminotransferase 20 U/L (7-40); Albumin 3.4 g/dL (3.2-4.8); Alkaline Phosphatase 57 U/L (46-116); Anion Gap 9 (5-15); BUN/Creatinine Ratio 21.1 (10.0-20.0); Bilirubin, Total 0.5 mg/dL (0.2-1.0); Carbon Dioxide 22 mmol/L (20-31); Chloride 101 mmol/L (98-107); Potassium 3.6 mmol/L (3.5-5.1); Total Protein 6.2 g/dL (5.7-8.2)
[2025-01-31 10:43] LABS: Blood Urea Nitrogen 58 mg/dL (9-23); Glucose 213 mg/dL (74-106); Sodium 132 mmol/L (136-145)
[2025-01-31 10:44] LABS: Calcium 8.3 mg/dL (8.7-10.4)
[2025-01-31 10:53] LABS: Lactic Acid w/Reflex 3.9 mmol/L (0.4-2.0)
[2025-01-31 11:06] LABS: Urine Protein, UAD 1+ (Negative)
[2025-01-31 11:14] LABS: Total Cells Counted 100.0 (100)
[2025-01-31] MEDS: MORPHINE SULFATE INJ 2 MG/ml SYRG IV PRN (12:25)
--- NOTE | 2025-01-31 15:50 | DVHINCON2 ---
Date of service: Jan 31, 2025 Referring Physician JESSICA Farris Reason for Consultation Acute kidney injury History of Present Illness 65-year-old patient with significant history of BPH, diabetes type 2 for 20 years, hypertension, CAD, kidney disease, chronic small, lung cancer for which he has for goal treatment who presents to complains of nonradiating lower abdominal pain associated with nausea vomiting diarrhea poor appetite for the last four days associated with decreased urinary output. He denies fever chills denies hematuria although presentation he was tachycardic his laboratory data revealed acute kidney injury. Serum creatinine was 3.09 mg/dL lactic acidosis. CT abdomen pelvis revealed pancolitis. Past Medical History Diabetes type 2, hypertension, lung cancer, CAD, chronic smoker Past Surgical History Denied Allergies: Coded Allergies: NO KNOWN ALLERGIES (Unverified , 06/04/21) Home Meds Active Scripts Nystatin (Mouth-Throat) (Mycostatin (Mouth-Throat)) 500,000 Units/5 Ml Ss, 5 ML MT QID for 5 Days, #100 ML Prov:KALE GOODSON MD 06/04/21 Reported Medications Atorvastatin Calcium (ATORVASTATIN CALCIUM) 20 Mg Tab, 1 TAB PO DAILY 01/31/25 Lisinopril (Lisinopril) 5 Mg Tab, 1 TAB PO DAILY 01/31/25 Current Medications Current Medications Medications (Trade) Dose Ordered Sig/Ge Route PRN Reason Start Time Stop Time Status Last Admin Ceftriaxone Sodium 50 ml @ 100 mls/hr DAILY@09 IV 01/31/25 09:00 01/31/25 10:00 Metronidazole 100 ml @ 100 mls/hr Q8H IV 01/31/25 11:30 01/31/25 11:38 Pantoprazole Sodium (Protonix Tablet) 40 mg DAILY@0600 PO 01/31/25 06:00 01/31/25 06:51 Albuterol (Ventolin Medneb) 2.5 mg Q6HPRN PRN NEB SHORTNESS OF BREATH 01/31/25 04:00 Atorvastatin Calcium (Lipitor) 20 mg HS PO 01/31/25 22:00 Acetaminophen/ Hydrocodone Bitart ([place] 5/325MG Tab) 1 tab Q4HP PRN PO MODERATE PAIN (4-6 PAIN SCALE) 01/31/25 04:00 Ondansetron HCl (Zofran) 4 mg Q4HP PRN IV NAUSEA / VOMITING 01/31/25 04:00 Acetaminophen (Tylenol Tablet) 650 mg Q6HP PRN PO PAIN SCALE 1-3 OR TEMP>100.4 01/31/25 04:00 Morphine Sulfate 2 mg Q6HPRN PRN IV SEVERE PAIN (7-10 PAIN SCALE) 01/31/25 04:00 01/31/25 12:25 Diagnostic Test (Pha) (Accu-Chek Comfort Curve T) 1 strip ACHS 01/31/25 07:00 01/31/25 12:00 Insulin Human Regular (InsuLIN R) HS SC 01/31/25 22:00 Insulin Human Regular (InsuLIN R) AC SC 01/31/25 07:00 01/31/25 12:00 Dextrose 50 ml UD PRN IV Blood Sugar LESS THAN 60 01/31/25 07:00 Atorvastatin Calcium (Lipitor) 20 mg DAILY PO 01/31/25 10:00 UNV Heparin Sodium (Porcine) 5,000 units Q12HR SC 01/31/25 10:00 01/31/25 10:23 Tamsulosin HCl (Flomax) 0.4 mg QPM PO 01/31/25 18:00 Family History Unknown Social History He smokes marijuana and cigarettes Review of Systems HEENT: Oral mucosa dry Neck no JVD Cardiovascular: Denies for chest pain denies orthopnea or PND Respiratory: Denies cough or shortness of breath Gastrointestinal: Positive for nausea vomiting diarrhea and abdominal pain Musculoskeletal: Denies myalgias Neurological: Denies focal weakness Dermatological: Denies any rash : Positive for decreased urinary output and straining The rest of the review of systems were reviewed pertinent positives and pertinent negatives are as per HPI up to 12 points review of systems H&P Exam Vital Signs/I&O Vital Sign Date Time Temp Pulse Resp B/P (MAP) Pulse Ox O2 Delivery O2 Flow Rate FiO2 01/31/25 12:55 90 15 156/83 01/31/25 12:00 96 01/31/25 11:30 98.1 98.1 01/31/25 11:30 Room Air* 0 21 Intake and Output 01/30/25 01/31/25 19:00 07:00 Intake Total 100 ml Balance 100 ml Intake IV Total 100 ml Physical Exam HEENT: Dry oral mucosa Pulmonary: Lungs are clear on auscultation bilaterally Cardiovascular S1-S2, no S3 or S4 Abdomen: Bowel sounds positive, soft no rebound tenderness Skin: No rash Neurological: Alert, oriented, no focal weakness Labs/Diagnostic Data Labs/Diagnostic Data Laboratory Tests Test 01/31/25 11:51 01/31/25 11:20 01/31/25 10:04 01/31/25 05:56 Range/Units Lactic Acid Level 2.3 *H 3.9 *H 0.4-2.0 mmol/L Stool for White Cells Many White Blood Count 3.8 #L 4.4-10.8 10^3/uL Red Blood Count 4.82 4.5-5.90 10^6/uL Hemoglobin 14.2 13.5-17.5 g/dL Hematocrit 41.8 41.0-53.0 % Mean Corpuscular Volume 86.7 80.0-100.0 fL Mean Corpuscular Hemoglobin 29.4 28.0-32.0 pg Mean Corpuscular Hemoglobin Concent 33.9 32.0-36.0 g/dL Red Cell Distribution Width 14.2 11.8-14.3 % Platelet Count 196 140-450 10^3/uL Mean Platelet Volume 8.6 6.9-10.8 fL Neutrophils (%) (Auto) 37.0-80.0 % Lymphocytes (%) (Auto) 10.0-50.0 % Monocytes (%) (Auto) 0.0-12.0 % Basophils (%) (Auto) 0.0-2.0 % Neutrophils # (Auto) 1.6-8.6 10 ^3/uL Lymphocytes # (Auto) 0.4-5.4 10 ^3/uL Monocytes # (Auto) 0-1.3 10 ^3/uL Differential Total Cells Counted 100.0 100 Neutrophils % (Manual) 52 37.0-80.0 Band Neutrophils % (Manual) 10 Lymphocytes % (Manual) 13 10.0-50.0 Monocytes % (Manual) 25 H 0-12 Eosinophils % (Manual) 0 0-7 Basophils % (Manual) 0 0.0-2.0 Metamyelocytes % (manual) 0 Myelocytes % (Manual) 0 Promyelocytes % (Manual) 0 Blast Cells % (Manual) 0 Reactive Lymphocytes 0 Platelet Estimate Adequate Urine Color Yellow Yellow Urine Clarity Turbid H Clear Urine pH 5.0 5.0-9.0 Urine Specific [place] 1.021 1.001-1.035 Urine Protein 1+ H Negative Urine Ketones Negative Negative Urine Blood 1+ H Negative /uL Urine Nitrite Negative Negative Urine Bilirubin Negative Negative Urine Urobilinogen Normal Negative mg/dL Urine Leukocyte Esterase Negative Negative /uL Urine RBC 3 0 - 3 /hpf Urine Microscopic WBC 3 0-3 /HPF Urine Squamous Epithelial Cells None seen <5 /hpf Urine Bacteria None seen None Seen /hpf Urine Glucose Trace Normal mg/dL Sodium Level 132 L 136-145 mmol/L Potassium Level 3.6 3.5-5.1 mmol/L Chloride Level 101 98-107 mmol/L Carbon Dioxide Level 22 20-31 mmol/L Anion Gap 9 5-15 Blood Urea Nitrogen 58 H 9-23 mg/dL Creatinine 2.75 H 0.700-1.30 mg/dL Glomerular Filtration Rate Calc 25 >90 mL/min BUN/Creatinine Ratio 21.1 H 10.0-20.0 Serum Glucose 213 H 74-106 mg/dL Calcium Level 8.3 L 8.7-10.4 mg/dL Total Bilirubin 0.5 0.2-1.0 mg/dL Aspartate Amino Transferase (AST) 14 13-40 U/L Alanine Aminotransferase (ALT) 20 7-40 U/L Alkaline Phosphatase 57 46-116 U/L C-Reactive Protein High Sensitivity > 20.00 H <1.0 mg/dL Total Protein 6.2 5.7-8.2 g/dL Albumin 3.4 3.2-4.8 g/dL POC Glucose 229 H 70-106 mg/dl Test 01/30/25 23:25 01/30/25 23:01 Range/Units White Blood Count 5.6 4.4-10.8 10^3/uL Red Blood Count 5.25 4.5-5.90 10^6/uL Hemoglobin 15.5 13.5-17.5 g/dL Hematocrit 45.3 41.0-53.0 % Mean Corpuscular Volume 86.4 80.0-100.0 fL Mean Corpuscular Hemoglobin 29.5 28.0-32.0 pg Mean Corpuscular Hemoglobin Concent 34.2 32.0-36.0 g/dL Red Cell Distribution Width 14.3 11.8-14.3 % Platelet Count 228 140-450 10^3/uL Mean Platelet Volume 9.0 6.9-10.8 fL Neutrophils (%) (Auto) 37.0-80.0 % Lymphocytes (%) (Auto) 10.0-50.0 % Monocytes (%) (Auto) 0.0-12.0 % Basophils (%) (Auto) 0.0-2.0 % Neutrophils # (Auto) 1.6-8.6 10 ^3/uL Lymphocytes # (Auto) 0.4-5.4 10 ^3/uL Monocytes # (Auto) 0-1.3 10 ^3/uL Differential Total Cells Counted 100.0 100 Neutrophils % (Manual) 44 37.0-80.0 Band Neutrophils % (Manual) 9 Lymphocytes % (Manual) 30 10.0-50.0 Monocytes % (Manual) 14 H 0-12 Eosinophils % (Manual) 1 0-7 Basophils % (Manual) 0 0.0-2.0 Metamyelocytes % (manual) 2 Myelocytes % (Manual) 0 Promyelocytes % (Manual) 0 Blast Cells % (Manual) 0 Reactive Lymphocytes 0 Platelet Estimate Adequate Sodium Level 132 L 136-145 mmol/L Potassium Level 3.8 3.5-5.1 mmol/L Chloride Level 99 98-107 mmol/L Carbon Dioxide Level 21 20-31 mmol/L Anion Gap 12 5-15 Blood Urea Nitrogen 64 H 9-23 mg/dL Creatinine 3.09 H 0.700-1.30 mg/dL Glomerular Filtration Rate Calc 22 >90 mL/min BUN/Creatinine Ratio 20.7 H 10.0-20.0 Serum Glucose 197 H 74-106 mg/dL Calcium Level 8.2 L 8.7-10.4 mg/dL Total Bilirubin 0.7 0.2-1.0 mg/dL Aspartate Amino Transferase (AST) 20 13-40 U/L Alanine Aminotransferase (ALT) 23 7-40 U/L Alkaline Phosphatase 67 46-116 U/L Ammonia < 10 L 11-32 umol/L Total Protein 6.2 5.7-8.2 g/dL Albumin 3.6 3.2-4.8 g/dL Lipase 20 12-53 U/L POC Glucose 214 H 70-106 mg/dl CT abdomen pelvis pancolitis Assessment Assessment: 1. Acute kidney injury secondary to hypovolemia and urinary retention. 2. Urinary retention 3. Acute gastroenteritis 4. Hypovolemia 5. Lung cancer 6. Diabetes type 2 7. Hypertension 8. Chronic smoker 9. BPH Plan: IV fluids with NS drip Lr catheter placement, close monitoring of urinary output Tamsulosin, Urology consult Avoid nephrotoxic agents, NSAIDs Obtain urine protein creatinine ratio Tighter glycemic control Thank you very much for allowing us to participate in the care of this patient please contact if you have any questions. Plan discussed with: Patient PHUONG FUNEZ MD Jan 31, 2025 15:50
--- NOTE | 2025-01-31 15:58 | DVHCONRES ---
Date Seen: Jan 31, 2025 Resident Creating Document: FLACO REBOLLAR RESIDENT History of Present Illness 65-year-old male presents to the ER with a chief complaint of intractable nausea, and diarrhea for the past 4 days. Patient denies recent traveling, sick contacts, meeting outside, reports that he has been having more than 6 episodes of diarrhea, nonbloody, watery, explosive, I can not keep anything down, and that his hepatitis low, also reports generalized fatigue and weakness. On arrival to the ER, patient is tachycardic, with lactic acid 3.9, reports chills but denies fever. Past medical history: Diabetes mellitus, hypertension, lung cancer GI consultation for pancolitis Patient seen and examined in the ER. Diffuse abdominal tenderness. Allergies: Coded Allergies: NO KNOWN ALLERGIES (Unverified , 06/04/21) Home Meds Active Scripts Nystatin (Mouth-Throat) (Mycostatin (Mouth-Throat)) 500,000 Units/5 Ml Ss, 5 ML MT QID for 5 Days, #100 ML Prov:KALE GOODSON MD 06/04/21 Reported Medications Atorvastatin Calcium (ATORVASTATIN CALCIUM) 20 Mg Tab, 1 TAB PO DAILY 01/31/25 Lisinopril (Lisinopril) 5 Mg Tab, 1 TAB PO DAILY 01/31/25 Current Medications Current Medications Medications (Trade) Dose Ordered Sig/Ge Route PRN Reason Start Time Stop Time Status Last Admin Ceftriaxone Sodium 50 ml @ 100 mls/hr DAILY@09 IV 01/31/25 09:00 01/31/25 10:00 Metronidazole 100 ml @ 100 mls/hr Q8H IV 01/31/25 11:30 01/31/25 11:38 Pantoprazole Sodium (Protonix Tablet) 40 mg DAILY@0600 PO 01/31/25 06:00 01/31/25 06:51 Albuterol (Ventolin Medneb) 2.5 mg Q6HPRN PRN NEB SHORTNESS OF BREATH 01/31/25 04:00 Atorvastatin Calcium (Lipitor) 20 mg HS PO 01/31/25 22:00 Acetaminophen/ Hydrocodone Bitart ([place] 5/325MG Tab) 1 tab Q4HP PRN PO MODERATE PAIN (4-6 PAIN SCALE) 01/31/25 04:00 Ondansetron HCl (Zofran) 4 mg Q4HP PRN IV NAUSEA / VOMITING 01/31/25 04:00 Acetaminophen (Tylenol Tablet) 650 mg Q6HP PRN PO PAIN SCALE 1-3 OR TEMP>100.4 01/31/25 04:00 Morphine Sulfate 2 mg Q6HPRN PRN IV SEVERE PAIN (7-10 PAIN SCALE) 01/31/25 04:00 01/31/25 12:25 Diagnostic Test (Pha) (Accu-Chek Comfort Curve T) 1 strip ACHS 01/31/25 07:00 01/31/25 12:00 Insulin Human Regular (InsuLIN R) HS SC 01/31/25 22:00 Insulin Human Regular (InsuLIN R) AC SC 01/31/25 07:00 01/31/25 12:00 Dextrose 50 ml UD PRN IV Blood Sugar LESS THAN 60 01/31/25 07:00 Atorvastatin Calcium (Lipitor) 20 mg DAILY PO 01/31/25 10:00 UNV Heparin Sodium (Porcine) 5,000 units Q12HR SC 01/31/25 10:00 01/31/25 10:23 Tamsulosin HCl (Flomax) 0.4 mg QPM PO 01/31/25 18:00 Review of Systems Eyes: No Pain, No Vision change, No Conjunctivae inflammation, No Eyelid inflammation, No Other, No Redness ENT: No Ear pain, No Ear discharge, No Nose pain, No Nose discharge, No Nose congestion, No Mouth pain, No Mouth swelling, No Throat pain, No Throat swelling, No Other Cardiovascular: No Chest Pain, No Palpitations, No Orthopnea, No PND, No Edema, No Lt Headedness, No Other Respiratory: No Cough, No Dry, No Shortness of breath, No SOB with exertion, No Wheezing, No Hemoptysis, No Pleuritic Pain, No Sputum, No Other Gastrointestinal: Reports nausea, abdominal, reports Diarrhea, No Constipation, No Melena, No Hematochezia, No Other Genitourinary: No Dysuria, No Frequency, No Incontinence, No Hematuria, No Retention, No Other Musculoskeletal: No other, No neck pain, No shoulder pain, No arm pain, No back pain, No hand pain, No leg pain, No foot pain Skin: No Rash, No Lesions, No Jaundice, No Bruising, No Other Vital Signs Vital Signs Date Time Temp Pulse Resp B/P (MAP) Pulse Ox O2 Delivery O2 Flow Rate FiO2 01/31/25 12:55 90 15 156/83 01/31/25 12:00 96 01/31/25 11:30 98.1 98.1 01/31/25 11:30 Room Air* 0 21 Physical Exam Patient lying in bed, in no acute distress General: Thin, afebrile, palor, mucosae are moist Cardiovascular: Tachycardia but Regular S1 and S2. No murmurs, gallops or rubs. No JVD elevation. No pedal edema Respiratory: Normal B/L air entry on room air. Clear lung sounds on auscultation Abdomen: Soft, diffusely tender, nondistended, normoactive bowel sounds, no rebound tenderness, no organomegaly, no masses Genitourinary: Deferred MSK/skin: Mobilizes 4 limbs. Skin is dry and warm Neurological: No motor, no sensitive deficits, normal speech. Pupils are isocoric and reactive. Psych/Mental Status: A/Ox3 Labs/Diagnostic Data Labs Test 01/31/25 11:51 01/31/25 11:20 01/31/25 10:04 01/31/25 05:56 Range/Units Lactic Acid Level 2.3 *H 0.4-2.0 mmol/L Stool for White Cells Many White Blood Count 3.8 #L 4.4-10.8 10^3/uL Red Blood Count 4.82 4.5-5.90 10^6/uL Hemoglobin 14.2 13.5-17.5 g/dL Hematocrit 41.8 41.0-53.0 % Mean Corpuscular Volume 86.7 80.0-100.0 fL Mean Corpuscular Hemoglobin 29.4 28.0-32.0 pg Mean Corpuscular Hemoglobin Concent 33.9 32.0-36.0 g/dL Red Cell Distribution Width 14.2 11.8-14.3 % Platelet Count 196 140-450 10^3/uL Mean Platelet Volume 8.6 6.9-10.8 fL Neutrophils (%) (Auto) 37.0-80.0 % Lymphocytes (%) (Auto) 10.0-50.0 % Monocytes (%) (Auto) 0.0-12.0 % Basophils (%) (Auto) 0.0-2.0 % Neutrophils # (Auto) 1.6-8.6 10 ^3/uL Lymphocytes # (Auto) 0.4-5.4 10 ^3/uL Monocytes # (Auto) 0-1.3 10 ^3/uL Differential Total Cells Counted 100.0 100 Neutrophils % (Manual) 52 37.0-80.0 Band Neutrophils % (Manual) 10 Lymphocytes % (Manual) 13 10.0-50.0 Monocytes % (Manual) 25 H 0-12 Eosinophils % (Manual) 0 0-7 Basophils % (Manual) 0 0.0-2.0 Metamyelocytes % (manual) 0 Myelocytes % (Manual) 0 Promyelocytes % (Manual) 0 Blast Cells % (Manual) 0 Reactive Lymphocytes 0 Platelet Estimate Adequate Urine Color Yellow Yellow Urine Clarity Turbid H Clear Urine pH 5.0 5.0-9.0 Urine Specific [place] 1.021 1.001-1.035 Urine Protein 1+ H Negative Urine Ketones Negative Negative Urine Blood 1+ H Negative /uL Urine Nitrite Negative Negative Urine Bilirubin Negative Negative Urine Urobilinogen Normal Negative mg/dL Urine Leukocyte Esterase Negative Negative /uL Urine RBC 3 0 - 3 /hpf Urine Microscopic WBC 3 0-3 /HPF Urine Squamous Epithelial Cells None seen <5 /hpf Urine Bacteria None seen None Seen /hpf Urine Glucose Trace Normal mg/dL Sodium Level 132 L 136-145 mmol/L Potassium Level 3.6 3.5-5.1 mmol/L Chloride Level 101 98-107 mmol/L Carbon Dioxide Level 22 20-31 mmol/L Anion Gap 9 5-15 Blood Urea Nitrogen 58 H 9-23 mg/dL Creatinine 2.75 H 0.700-1.30 mg/dL Glomerular Filtration Rate Calc 25 >90 mL/min BUN/Creatinine Ratio 21.1 H 10.0-20.0 Serum Glucose 213 H 74-106 mg/dL Calcium Level 8.3 L 8.7-10.4 mg/dL Total Bilirubin 0.5 0.2-1.0 mg/dL Aspartate Amino Transferase (AST) 14 13-40 U/L Alanine Aminotransferase (ALT) 20 7-40 U/L Alkaline Phosphatase 57 46-116 U/L C-Reactive Protein High Sensitivity > 20.00 H <1.0 mg/dL Total Protein 6.2 5.7-8.2 g/dL Albumin 3.4 3.2-4.8 g/dL POC Glucose 229 H 70-106 mg/dl Test 01/30/25 23:25 Range/Units Ammonia < 10 L 11-32 umol/L Lipase 20 12-53 U/L Assessment Sepsis secondary to gastroenteritis Pancolitis Acute kidney injury Acute urinary retention Diabetes mellitus type 2 CRP greater than [address] abdomen shows moderate infection inflammatory pancolitis Plan: Recommendation: Dr. Castro Patient likely has gastroenteritis, follow up with the stool culture and blood culture. Stool WBC positive. Continue IV ceftriaxone, metronidazole, IV fluids Continue IV Protonix 40 mg daily Urology consult appreciated, patient underwent Lr placement for acute urinary retention Follow up with COVID and flu Strict I&Os Clear liquid diet Plan discussed with patient in which all questions have been answered Case discussed with Dr. Castro Plan discussed with: Patient FLACO REBOLLAR RESIDENT Jan 31, 2025 15:58
[2025-01-31 17:09] LABS: COVID19 ANTIGEN SOFIA FIA NEGATIVE (NEGATIVE)
[2025-01-31] MEDS: SODIUM CHLORIDE 0.9% 1,000 ML IV SCH (17:36)
[2025-01-31] MEDS: TAMSULOSIN HYDROCHLORIDE 0.4 MG CAP PO SCH (20:53)
[2025-01-31] MEDS: ATORVASTATIN 20 MG TAB PO SCH (22:10)
[2025-02-01] VITALS (9 sets, daily range): BP systolic 115–155; BP diastolic 69–80; PULSE 78–93; RESP 16–18; TEMP 97.8–98.7; O2SAT 94–100
[2025-02-01] MEDS: HYDROcodone-ACET 5/325MG TAB PO PRN (03:50)
[2025-02-01 05:44] LABS: Hematocrit 36.2 % (41.0-53.0); Hemoglobin 12.4 g/dL (13.5-17.5); Mean Corpuscular Hemoglobin 29.4 pg (28.0-32.0); Mean Corpuscular Volume 86.2 fL (80.0-100.0)
[2025-02-01 05:49] LABS: Chloride 107 mmol/L (98-107); Potassium 3.7 mmol/L (3.5-5.1)
[2025-02-01 05:50] LABS: Anion Gap 9 (5-15); Carbon Dioxide 20 mmol/L (20-31)
[2025-02-01 05:56] LABS: BUN/Creatinine Ratio 21.3 (10.0-20.0)
[2025-02-01 06:07] LABS: Prostate Specific Antigen 1.4 ng/mL (0.0-4.0)
[2025-02-01 06:08] LABS: Blood Urea Nitrogen 36 mg/dL (9-23); Calcium 7.7 mg/dL (8.7-10.4); Glucose 249 mg/dL (74-106); Sodium 136 mmol/L (136-145)
[2025-02-01 06:34] LABS: Total Cells Counted 100.0 (100)
[2025-02-01] MEDS: PANTOPRAZOLE 40 MG/10 ML VIAL INJ IV SCH (09:12)
--- NOTE | 2025-02-01 13:56 | DVHPN2 ---
Progress Note - Dictate Date Seen: Feb 01, 2025 Medical Necessity Reason Pt with a Central, PICC or Fol: No vital signs Vital Sign Date Time Temp Pulse Resp B/P (MAP) Pulse Ox O2 Delivery O2 Flow Rate FiO2 02/01/25 12:57 98.0 93 16 134/75 (94) 96 98.0 02/01/25 08:00 Room Air* 0 21 Total Intake and Output 01/31/25 01/31/25 02/01/25 15:00 23:00 07:00 Intake Total 900 ml 200 ml 400 ml Output Total 1800 ml Balance 900 ml 200 ml -1400 ml medications Current Medications Medications Dose Ordered Sig/Ge Route Start Time Stop Time Status Last Admin Dose Admin Ceftriaxone Sodium 50 ml @ 100 mls/hr DAILY@09 IV 01/31/25 09:00 02/01/25 09:11 100 MLS/HR Metronidazole 100 ml @ 100 mls/hr Q8H IV 01/31/25 11:30 02/01/25 11:20 100 MLS/HR Albuterol 2.5 mg Q6HPRN PRN NEB 01/31/25 04:00 Atorvastatin Calcium 20 mg HS PO 01/31/25 22:00 01/31/25 22:10 20 MG Acetaminophen/ Hydrocodone Bitart 1 tab Q4HP PRN PO 01/31/25 04:00 02/01/25 03:50 1 TAB Ondansetron HCl 4 mg Q4HP PRN IV 01/31/25 04:00 Acetaminophen 650 mg Q6HP PRN PO 01/31/25 04:00 Morphine Sulfate 2 mg Q6HPRN PRN IV 01/31/25 04:00 01/31/25 12:25 2 MG Diagnostic Test (Pha) 1 strip ACHS 01/31/25 07:00 02/01/25 11:37 1 STRIP Insulin Human Regular HS SC 01/31/25 22:00 Insulin Human Regular AC SC 01/31/25 07:00 02/01/25 11:38 2 UNITS Dextrose 50 ml UD PRN IV 01/31/25 07:00 Atorvastatin Calcium 20 mg DAILY PO 01/31/25 10:00 UNV Heparin Sodium (Porcine) 5,000 units Q12HR SC 01/31/25 10:00 02/01/25 09:30 5,000 UNITS Tamsulosin HCl 0.4 mg QPM PO 01/31/25 18:00 01/31/25 20:53 0.4 MG Pantoprazole Sodium 40 mg DAILY IV 02/01/25 10:00 02/01/25 09:12 40 MG laboratory and microbiology Laboratory Tests 02/01/25 05:17 Test 02/01/25 05:17 Range/Units Serum Glucose 249 H 74-106 mg/dL Problem List -Abdominal pain r/t patel colitis IV Abx, GI consult, monitoring -Urinary retention Lr catheter placement, IV fluids, monitoring -BPH monitoring -EWA from vasomotor nephropathy Nephrology consult, monitor labs, medications, monitoring -Diarrhea Sent stool for culture, Rule out Cdiff, medications, monitoring -Sepsis Monitor, IV antibiotics - Gastroenteritis Monitor, GI consult Assessment/Plan Subjective Patient is awake and alert Objective Patient is doing much better. Patient was admitted for abdominal pain related to acute pancolitis. Patient had urinary retention. Patient also had EWA due to urinary retention and severe diarrhea. C. difficile is negative. Patient still having multiple diarrhea episodes. Patient was seen by urology. Patient has a resolving EWA. Plan Continue Rocephin and Flagyl for pancolitis. Stool for WBC is positive. Continue antibiotics with Rocephin and Flagyl. Monitor daily labs. Smoking cessation education. Patient refusing nicotine patch at this time. He is signing out AMA to smoke outside. Advance diet as tolerated. Dietary Evaluation Review Comments: Nutrition Recommendation: 1) Advance diet as medically feasible 2) Monitor PO intake, lab values, weight trend, and I/O Expected Outcomes/Goals: GI symptoms to improve Intake to meet >75% estimated needs FU 2-3 days Plan discussed with: Patient, Other FRANCISCO JAVIER MACKEY [employer]ER Feb 01, 2025 13:56
--- NOTE | 2025-02-01 14:37 | DVHPN2 ---
Progress Note - Dictate Date Seen: Feb 01, 2025 Medical Necessity Reason Pt with a Central, PICC or Fol: No Subjective Patient continues to have diarrhea but is more formed vital signs Vital Sign Date Time Temp Pulse Resp B/P (MAP) Pulse Ox O2 Delivery O2 Flow Rate FiO2 02/01/25 12:57 98.0 93 16 134/75 (94) 96 98.0 02/01/25 08:00 Room Air* 0 21 Total Intake and Output 01/31/25 01/31/25 02/01/25 15:00 23:00 07:00 Intake Total 900 ml 200 ml 400 ml Output Total 1800 ml Balance 900 ml 200 ml -1400 ml medications Current Medications Medications Dose Ordered Sig/Ge Route Start Time Stop Time Status Last Admin Dose Admin Ceftriaxone Sodium 50 ml @ 100 mls/hr DAILY@09 IV 01/31/25 09:00 02/01/25 09:11 100 MLS/HR Metronidazole 100 ml @ 100 mls/hr Q8H IV 01/31/25 11:30 02/01/25 11:20 100 MLS/HR Albuterol 2.5 mg Q6HPRN PRN NEB 01/31/25 04:00 Atorvastatin Calcium 20 mg HS PO 01/31/25 22:00 01/31/25 22:10 20 MG Acetaminophen/ Hydrocodone Bitart 1 tab Q4HP PRN PO 01/31/25 04:00 02/01/25 03:50 1 TAB Ondansetron HCl 4 mg Q4HP PRN IV 01/31/25 04:00 Acetaminophen 650 mg Q6HP PRN PO 01/31/25 04:00 Morphine Sulfate 2 mg Q6HPRN PRN IV 01/31/25 04:00 01/31/25 12:25 2 MG Diagnostic Test (Pha) 1 strip ACHS 01/31/25 07:00 02/01/25 11:37 1 STRIP Insulin Human Regular HS SC 01/31/25 22:00 Insulin Human Regular AC SC 01/31/25 07:00 02/01/25 11:38 2 UNITS Dextrose 50 ml UD PRN IV 01/31/25 07:00 Atorvastatin Calcium 20 mg DAILY PO 01/31/25 10:00 UNV Heparin Sodium (Porcine) 5,000 units Q12HR SC 01/31/25 10:00 02/01/25 09:30 5,000 UNITS Tamsulosin HCl 0.4 mg QPM PO 01/31/25 18:00 01/31/25 20:53 0.4 MG Pantoprazole Sodium 40 mg DAILY IV 02/01/25 10:00 02/01/25 09:12 40 MG objective HEENT: No evidence of JVD, no oral ulcers. Pulmonary: Lungs are clear on auscultation bilaterally Cardiovascular S1-S2, no S3 or S4 Abdomen: Bowel sounds positive, soft no rebound tenderness Skin: No rash Neurological: Alert, oriented, no focal weakness laboratory and microbiology Laboratory Tests 02/01/25 05:17 Test 02/01/25 05:17 Range/Units Serum Glucose 249 H 74-106 mg/dL Assessment/Plan Assessment: 1. Improving Acute kidney injury secondary to hypovolemia and urinary retention. 2. Urinary retention 3. Acute gastroenteritis 4. Hypovolemia 5. Lung cancer 6. Diabetes type 2 7. Hypertension 8. Chronic smoker 9. BPH Plan: IV fluids with NS drip for 500 mL more Lr catheter is in place follow up as an outpatient with Urology for management Tamsulosin, Urology consult appreciated Avoid nephrotoxic agents, NSAIDs Tighter glycemic control He was advised to replace fluid losses with Gatorade, coconut water Pedialyte one glass per diarrhea bowel movement From Nephrology perspective he is cleared to home once diarrhea resolves Thank you very much for allowing us to participate in the care of this patient please contact if you have any questions. Dietary Evaluation Review Comments: Nutrition Recommendation: 1) Advance diet as medically feasible 2) Monitor PO intake, lab values, weight trend, and I/O Expected Outcomes/Goals: GI symptoms to improve Intake to meet >75% estimated needs FU 2-3 days Plan discussed with: Patient PHUONG FUNEZ MD Feb 01, 2025 14:37
[2025-02-01] MEDS: SODIUM CHLORIDE 0.9% 1,000 ML IV SCH (14:45)
--- NOTE | 2025-02-01 16:45 | DVHPN2 ---
Progress Note Date Seen: Feb 01, 2025 Resident Creating Document: FLACO REBOLLAR RESIDENT Medical Necessity Reason Pt with a Central, PICC or Fol: No Subjective Review of Systems Patient seen and examined reports feeling better, diet advanced to soft Objective vital signs Vital Sign Date Time Temp Pulse Resp B/P (MAP) Pulse Ox O2 Delivery O2 Flow Rate FiO2 02/01/25 12:57 98.0 93 16 134/75 (94) 96 98.0 02/01/25 08:00 Room Air* 0 21 Total Intake and Output 01/31/25 01/31/25 02/01/25 15:00 23:00 07:00 Intake Total 900 ml 200 ml 400 ml Output Total 1800 ml Balance 900 ml 200 ml -1400 ml medications Current Medications Medications Dose Ordered Sig/Eg Route Start Time Stop Time Status Last Admin Dose Admin Ceftriaxone Sodium 50 ml @ 100 mls/hr DAILY@09 IV 01/31/25 09:00 02/01/25 09:11 100 MLS/HR Metronidazole 100 ml @ 100 mls/hr Q8H IV 01/31/25 11:30 02/01/25 11:20 100 MLS/HR Albuterol 2.5 mg Q6HPRN PRN NEB 01/31/25 04:00 Atorvastatin Calcium 20 mg HS PO 01/31/25 22:00 01/31/25 22:10 20 MG Acetaminophen/ Hydrocodone Bitart 1 tab Q4HP PRN PO 01/31/25 04:00 02/01/25 03:50 1 TAB Ondansetron HCl 4 mg Q4HP PRN IV 01/31/25 04:00 Acetaminophen 650 mg Q6HP PRN PO 01/31/25 04:00 Morphine Sulfate 2 mg Q6HPRN PRN IV 01/31/25 04:00 01/31/25 12:25 2 MG Diagnostic Test (Pha) 1 strip ACHS 01/31/25 07:00 02/01/25 11:37 1 STRIP Insulin Human Regular HS SC 01/31/25 22:00 Insulin Human Regular AC SC 01/31/25 07:00 02/01/25 11:38 2 UNITS Dextrose 50 ml UD PRN IV 01/31/25 07:00 Atorvastatin Calcium 20 mg DAILY PO 01/31/25 10:00 UNV Heparin Sodium (Porcine) 5,000 units Q12HR SC 01/31/25 10:00 02/01/25 09:30 5,000 UNITS Tamsulosin HCl 0.4 mg QPM PO 01/31/25 18:00 01/31/25 20:53 0.4 MG Pantoprazole Sodium 40 mg DAILY IV 02/01/25 10:00 02/01/25 09:12 40 MG Sodium Chloride 1,000 ml @ 100 mls/hr Q10H IV 02/01/25 14:45 02/01/25 20:35 02/01/25 14:45 100 MLS/HR Examination Eyes: No Pain, No Vision change, No Conjunctivae inflammation, No Eyelid inflammation, No Other, No Redness ENT: No Ear pain, No Ear discharge, No Nose pain, No Nose discharge, No Nose congestion, No Mouth pain, No Mouth swelling, No Throat pain, No Throat swelling, No Other Cardiovascular: No Chest Pain, No Palpitations, No Orthopnea, No PND, No Edema, No Lt Headedness, No Other Respiratory: No Cough, No Dry, No Shortness of breath, No SOB with exertion, No Wheezing, No Hemoptysis, No Pleuritic Pain, No Sputum, No Other Gastrointestinal: Reports nausea, abdominal, reports Diarrhea, No Constipation, No Melena, No Hematochezia, No Other Genitourinary: No Dysuria, No Frequency, No Incontinence, No Hematuria, No Retention, No Other Musculoskeletal: No other, No neck pain, No shoulder pain, No arm pain, No back pain, No hand pain, No leg pain, No foot pain Skin: No Rash, No Lesions, No Jaundice, No Bruising, No Other Patient lying in bed, in no acute distress General: Thin, afebrile, palor, mucosae are moist Cardiovascular: Tachycardia but Regular S1 and S2. No murmurs, gallops or rubs. No JVD elevation. No pedal edema Respiratory: Normal B/L air entry on room air. Clear lung sounds on auscultation Abdomen: Soft, diffusely tender, nondistended, normoactive bowel sounds, no rebound tenderness, no organomegaly, no masses Genitourinary: Deferred MSK/skin: Mobilizes 4 limbs. Skin is dry and warm Neurological: No motor, no sensitive deficits, normal speech. Pupils are isocoric and reactive. Psych/Mental Status: A/Ox3 laboratory and microbiology Laboratory Tests 02/01/25 05:17 Test 02/01/25 05:17 Range/Units Serum Glucose 249 H 74-106 mg/dL Microbiology Date/Time Source Procedure Growth Status 01/31/25 11:30 Stool Stool Culture - Preliminary Resulted 01/31/25 11:30 Stool Shiga Toxin I & II - Final Resulted Labs and/or images reviewed: Labs reviewed by me, Image(s) reviewed by me Problem List/Assessment/Plan Problem List/Assessment/Plan Sepsis secondary to gastroenteritis Pancolitis Acute kidney injury Acute urinary retention Diabetes mellitus type 2 CRP greater than [address] abdomen shows moderate infection inflammatory pancolitis Plan: Recommendation: Dr. Castro Patient is improving. Diet advanced to soft mechanical. Lactic acid came down, CRP downtrending. Stool WBC positive. C diff negative. Prelim stool culture negative. Continue IV ceftriaxone, metronidazole, IV fluids Continue IV Protonix 40 mg daily Urology consult appreciated, patient underwent Lr placement for acute urinary retention Strict I&Os Plan discussed with patient in which all questions have been answered Case discussed with Dr. Castro Plan discussed with: Patient My Orders My Orders Orders - FLACO REBOLLAR Procedure Category Date Status Time Strict I & O BALWINDER 02/01/25 In Process 09:43 Dietary Evaluation Review Comments: Nutrition Recommendation: 1) Advance diet as medically feasible 2) Monitor PO intake, lab values, weight trend, and I/O Expected Outcomes/Goals: GI symptoms to improve Intake to meet >75% estimated needs FU 2-3 days FLACO REBOLLAR RESIDENT Feb 01, 2025 16:45
[2025-02-02 01:00] VITALS: BP 130/79; PULSE 90; RESP 18; TEMP 97.9; O2SAT 94
[2025-02-02 05:00] VITALS: BP 148/83; PULSE 75; RESP 18; TEMP 97.9; O2SAT 95
[2025-02-02 08:52] VITALS: BP 153/80; PULSE 91; RESP 16; TEMP 98.3; O2SAT 98
[2025-02-02 10:54] VITALS: O2SAT 94
[2025-02-02] MEDS ORDERED: METR-344 PO (11:07)
[2025-02-02] MEDS ORDERED: CIPR-173 PO (11:07)
--- NOTE | 2025-02-02 11:10 | DVHDS2 ---
Discharge Summary Date of Admission Jan 31, 2025 at 03:51 Date of Discharge: Feb 02, 2025 Labs/Diagnostic Data: Laboratory Results Test 02/02/25 06:04 02/01/25 05:17 01/31/25 17:51 01/31/25 16:32 POC Glucose 200 mg/dl (70-106) White Blood Count 4.7 10^3/uL (4.4-10.8) Red Blood Count 4.20 10^6/uL (4.5-5.90) Hemoglobin 12.4 g/dL (13.5-17.5) Hematocrit 36.2 % (41.0-53.0) Mean Corpuscular Volume 86.2 fL (80.0-100.0) Mean Corpuscular Hemoglobin 29.4 pg (28.0-32.0) Mean Corpuscular Hemoglobin Concent 34.1 g/dL (32.0-36.0) Red Cell Distribution Width 14.0 % (11.8-14.3) Platelet Count 179 10^3/uL (140-450) Mean Platelet Volume 9.0 fL (6.9-10.8) Neutrophils (%) (Auto) % (37.0-80.0) Lymphocytes (%) (Auto) % (10.0-50.0) Monocytes (%) (Auto) % (0.0-12.0) Basophils (%) (Auto) % (0.0-2.0) Neutrophils # (Auto) 10 ^3/uL (1.6-8.6) Lymphocytes # (Auto) 10 ^3/uL (0.4-5.4) Monocytes # (Auto) 10 ^3/uL (0-1.3) Differential Total Cells Counted 100.0 (100) Neutrophils % (Manual) 63 (37.0-80.0) Band Neutrophils % (Manual) 2 Lymphocytes % (Manual) 12 (10.0-50.0) Monocytes % (Manual) 23 (0-12) Eosinophils % (Manual) 0 (0-7) Basophils % (Manual) 0 (0.0-2.0) Metamyelocytes % (manual) 0 Myelocytes % (Manual) 0 Promyelocytes % (Manual) 0 Blast Cells % (Manual) 0 Reactive Lymphocytes 0 Platelet Estimate Adequate Sodium Level 136 mmol/L (136-145) Potassium Level 3.7 mmol/L (3.5-5.1) Chloride Level 107 mmol/L (98-107) Carbon Dioxide Level 20 mmol/L (20-31) Anion Gap 9 (5-15) Blood Urea Nitrogen 36 mg/dL (9-23) Creatinine 1.69 mg/dL (0.700-1.30) Glomerular Filtration Rate Calc 45 mL/min (>90) BUN/Creatinine Ratio 21.3 (10.0-20.0) Serum Glucose 249 mg/dL (74-106) Calcium Level 7.7 mg/dL (8.7-10.4) C-Reactive Protein High Sensitivity 15.91 mg/dL (<1.0) Lactic Acid Level 1.5 mmol/L (0.4-2.0) Influenza Type A Antigen Negative (Negative) Influenza Type B Antigen Negative (Negative) SARS-CoV-2 Antigen (Rapid) Negative (NEGATIVE) Test 01/31/25 11:20 01/31/25 10:04 01/30/25 23:25 Stool for White Cells Many Urine Color Yellow (Yellow) Urine Clarity Turbid (Clear) Urine pH 5.0 (5.0-9.0) Urine Specific [place] 1.021 (1.001-1.035) Urine Protein 1+ (Negative) Urine Ketones Negative (Negative) Urine Blood 1+ /uL (Negative) Urine Nitrite Negative (Negative) Urine Bilirubin Negative (Negative) Urine Urobilinogen Normal mg/dL (Negative) Urine Leukocyte Esterase Negative /uL (Negative) Urine RBC 3 /hpf (0 - 3) Urine Microscopic WBC 3 /HPF (0-3) Urine Squamous Epithelial Cells None seen /hpf (<5) Urine Bacteria None seen /hpf (None Seen) Urine Glucose Trace mg/dL (Normal) Total Bilirubin 0.5 mg/dL (0.2-1.0) Aspartate Amino Transferase (AST) 14 U/L (13-40) Alanine Aminotransferase (ALT) 20 U/L (7-40) Alkaline Phosphatase 57 U/L (46-116) Total Protein 6.2 g/dL (5.7-8.2) Albumin 3.4 g/dL (3.2-4.8) Free Prostate Specific Antigen 0.31 ng/mL (N/A) Percent Free Prostate Specific Ag 22.1 % (.) Prostate Specific Antigen Total 1.4 ng/mL (0.0-4.0) Ammonia < 10 umol/L (11-32) Lipase 20 U/L (12-53) Other Laboratory Tests 02/01/25 05:17 Brief Hx & Hospital Course: 65 year old male with history of lung cancer, DM, HLD, HTN, [place], kidney disease, and tobacco cigarette and marijuana use. is complaining of lower abdominal pain for four days. Patient also reports nausea, vomiting, diarrhea with poor appetite. Patient was admitted on January 31, 2025 for abdominal pain related to a gastroenteritis and food poisoning. Patient's WBC of the stool was positive. Patient was seen by gastroenterology. Patient also had acute urinary retention. Patient was seen by Dr. Rickey Segura from urology. Lr catheter was placed. Patient was started on empiric IV antibiotics. Patient also had an EWA most likely from dehydration. Patient was given IV fluids and he was seen by nephrology. Patient's condition improved. Patient also is a smoker. Smoking cessation education was done. Patient will need to continue oral antibiotics. He previously was on Rocephin and Flagyl IV. Patient was discharged home on oral Cipro and Flagyl for additional 10 days and he was instructed to follow-up with his PCP in 1 week. Will repeat labs. He was also instructed to make sure he was adequately hydrated. There were no complaints or new complaints upon discharge, all questions and concerns were answered. Patient was advised to return to the ER or call 911 if any headaches, dizziness, shortness of breath, chest pain, bleeding, fevers, or worsening of medical condition. Patient/Family was counseled about treatment plan, medications, possible side effects, patient verbalized understanding. All questions were answered to the best of my ability. The patient symptoms improved and they are okay to be DC. Condition at Discharge: Stable Final Diagnosis/Problems List Gastroenteretis Pancolitis Discharge Disposition: Home Discharge Instruct/Medications Diet: Regular Activity: No Restrictions, As Tolerated Follow Up/Referral: pcp 1 week referral to urology Dr. Rickey Segura Scheduled Atorvastatin Calcium (Atorvastatin Calcium), 1 TAB PO DAILY, (Reported) Ciprofloxacin Hcl (Cipro), 1 TAB PO BID Lisinopril (Lisinopril), 1 TAB PO DAILY, (Reported) Metronidazole (Flagyl), 1 TAB PO TID Nystatin (Mouth-Throat) (Mycostatin (Mouth-Throat)), 5 ML MT QID Discharge Statement: "Patient was advised to return to the ER or call 911 if any headaches, dizziness, shortness of breath, chest pain, abdominal pain, bleeding, fevers, or worsening of medical condition. Patient was counseled about treatment plan, medications, possible side effects, patientverbalized understanding. All questions were answered to the best of my ability. This discharge took greater then 30 minutes in planning, reviewing documentation, counseling the patient, and discussing with other team members." ASSESSMENT ASSESSMENT Assessment Gastroenteretis FRANCISCO JAVIER Jacob NP Feb 02, 2025 11:10
[2025-02-02 12:15] VITALS: TEMP 36.8
[2025-02-02 12:38] VITALS: BP 154/100; PULSE 64; RESP 19; TEMP 98.4; O2SAT 98
== END 2025-02-02 12:30 | disposition home or self-care (01) | DRG 249 ==
LOC: ER 22:45 → OVERFLOW 01-31 03:51 → CENTRAL 01-31 21:51
PROVIDERS: ADMIT Nurse Practitioner; ATTEND Nurse Practitioner
DX: K52.9 Noninfective gastroenteritis and colitis, unspecified (principal); N17.0 Acute kidney failure with tubular necrosis; A05.9 Bacterial foodborne intoxication, unspecified; E11.9 Type 2 diabetes mellitus without complications; E78.5 Hyperlipidemia, unspecified; E86.0 Dehydration; I10 Essential (primary) hypertension; Z20.822 Contact with and (suspected) exposure to COVID-19; E86.1 Hypovolemia; F17.210 Nicotine dependence, cigarettes, uncomplicated; N40.1 Benign prostatic hyperplasia with lower urinary tract symptoms; R33.8 Other retention of urine; I25.10 Atherosclerotic heart disease of native coronary artery without angina pectoris; I25.2 Old myocardial infarction; Z85.118 Personal history of other malignant neoplasm of bronchus and lung; Z71.6 Tobacco abuse counseling
CPT/HCPCS: 36415; 74176; 76775; 80048; 80053; 81001; 82140; 82270; 82962; 83605; 83690; 84154; 85007; 85027; 85048; 86141; 87045; 87426; 87427; 87493; 87804; G0378; J1815; J2405; J2470; J3490